=== PATIENT | male | born 1965 | race African-American/Black ===

== ENCOUNTER 2018-09-27 20:36 | Emergency (ER) | payer SELFPAY ==
[~2018-09-27] VITALS: Ht 170.2 cm; Wt 81.6 kg
[2018-09-27 20:45] VITALS: BP 135/87
[2018-09-27] MEDS ORDERED: HYDR-3164 PO (21:49)
--- NOTE | 2018-09-27 22:06 | PHYS DOC ---
Past Medical History Past Medical History: Asthma Past Surgical History: Tonsillectomy Alcohol Use: None Drug Use: None Adult General Chief Complaint Chief Complaint: ABDOMINAL PAIN HPI HPI Patient is a 52 year old [male] who presents with [right groin pain, abdominal pain, and a bulging groin mass.] Pt reports the onset of RLQ abdominal/right groin pain happened about a month ago starting as an intermittent mild discomfort. 1-2 weeks ago his discomfort started to become more painful and he noticed a bulging mass in his right groin. After discovering the mass he reports gradually worsening pain that has become constant the past few days. The pain is described as a dull "prickly" pain that can become very sharp at times. When dull he rates it a 2/10 but when sharp it becomes a 9/10. He reports the pain localizing more to his right groin during this time. He did not try to reduce the mass but notes it increases in size and is painful when he coughs, sneezes, or defecates. His last bowel movement was today and he reports flatulence is still occurring. This morning the patient got back from a [address] trip from [place]. He denies n/v, diarrhea, constipation, blood in stool or urine, headache, chest pain, shortness of breath, or fever/chills. Review of Systems Review of Systems Constitutional: Denies fever or chills Eyes: Denies change in visual acuity, redness, or eye pain HENT: Denies nasal congestion or sore throat Respiratory: Denies cough or shortness of breath Cardiovascular: No additional information not addressed in HPI GI: Denies, nausea, vomiting, bloody stools or diarrhea. Admits to RLQ abdominal pain and r inguinal/groin pain. : Denies dysuria or hematuria. Admits to intermittent testicular pain without edema or discoloration Musculoskeletal: Denies back pain or joint pain Integument: Denies rash or skin lesions Neurologic: Denies headache, focal weakness or sensory changes All other systems were reviewed and found to be within normal limits, except as documented in this note. Allergies Allergies Allergies Coded Allergies Type Severity Reaction Last Updated Verified No Known Drug Allergies 09/27/18 No Physical Exam Physical Exam Constitutional: Well developed, well nourished, no acute distress, non-toxic appearance. HENT: Normocephalic, atraumatic, bilateral external ears normal, oropharynx moist, no oral exudates, nose normal. Eyes: PERRLA, EOMI, conjunctiva normal, no discharge. Neck: Normal range of motion, no tenderness, supple, no stridor. Cardiovascular:Heart rate regular rhythm, no murmur Lungs & Thorax: Bilateral breath sounds clear to auscultation Abdomen: Bowel sounds normal, soft, no tenderness, no pulsatile masses. When patient stands and coughs, a slight fullness was palpated in the r inguinal region but no obvious herniation was noted. Patient was tender to palpation in the inguinal region. Skin: Warm, dry, no erythema, no rash. Back: No tenderness, no CVA tenderness. Extremities: No tenderness, no cyanosis, no clubbing, ROM intact, no edema. Neurologic: Alert and oriented X 3, normal motor function, normal sensory function, no focal deficits noted. Psychologic: Affect normal, judgement normal, mood normal. Current Patient Data Vital Signs Vital Signs Date Time Temp Pulse Resp B/P (MAP) Pulse Ox O2 Delivery O2 Flow Rate FiO2 09/27/18 20:45 98.0 74 16 135/87 (103) 96 Room Air 98.0 EKG EKG [] Radiology/Procedures Radiology/Procedures [] Course & Med Decision Making Course & Med Decision Making Pertinent Labs and Imaging studies reviewed. (See chart for details) [Pt is a 52 yo male presenting with RLQ/right inguinal pain. Pt reports a month of abdominal pain that is gradually worsening. It was intermittent at first but has become constant the past few days. He reported discovering a mass in the right inguinal region that he states becomes more prominent and painful when coughing, sneezing, or straining to defecate. His pain is described as dull and "prickly" that can become sharp - rated 2/10 normally but a 9/10 when sharp. On physical examination, no obvious herniation was palpated in the right inguinal region. Some fullness was palpated in the inguinal region when patient was standing and coughing. He had no abdominal tenderness but was tender to palpation in the right inguinal region. no obvious incarceration or obstuction, pt reassured norco for pain as needed, minimize heavy lifting f/u with surgery Dragon Disclaimer Gerardoon Disclaimer This electronic medical record was generated, in whole or in part, using a voice recognition dictation system. Departure Departure Impression: Primary Impression: Right inguinal hernia Disposition: HOME, SELF-CARE Condition: STABLE Referrals: YANELY RAMIREZ [employer]ELOPER (PCP) Scripts Hydrocodone/Apap 5-325 (NORCO 5-325 TABLET) 1 Each Tablet 1-2 EACH PO PRN Q6HRS PRN for PAIN, #15 as needed for pain Prov: DYLAN HOPPER MD 09/27/18 DYLAN HOPPER MD Sep 27, 2018 22:06
== END 2018-09-27 22:15 | disposition home or self-care (01) ==
LOC: ER 20:36
DX: K40.90 Unilateral inguinal hernia, without obstruction or gangrene, not specified as recurrent (principal); J45.909 Unspecified asthma, uncomplicated; Z90.89 Acquired absence of other organs
CPT/HCPCS: 99283

== ENCOUNTER → 2018-10-01 | Outpatient (CLI) | payer BC ==
[2018-09-27 20:45] VITALS: BP 135/87
[~2018-10-01] MED LIST: HYDR-3164 PO
--- NOTE | 2018-10-01 10:59 | KCIC ---
ABDOMEN COMPLETE History: Generalized abdominal pain Comparison: None. Findings: Multiple sonographic images of the abdomen are submitted. Pancreas is poorly visualized due to bowel gas. There is segmental visualization of the inferior vena cava. Abdominal aortic caliber is within normal limits. Gallbladder is present without intraluminal abnormality, wall thickening, pericholecystic fluid. No focal hepatic lesion is demonstrated, hepatic echogenicity considered within normal limits. Right lobe of the liver measured 14 cm longitudinal. Right kidney measured 10.9 x 5.1 x 4 cm, no hydronephrosis. Left kidney measured 11 x 5.1 x 5.5 cm, no hydronephrosis. No abnormality is demonstrated of the spleen. Common bile duct is within normal about 0.4 cm. Impression: 1. No significant abnormality is demonstrated. Electronically signed by: Channing Guaman MD (10/01/2018 10:56 AM) [email or web address]
--- NOTE | 2018-10-01 11:01 | KCIC ---
EXT NON VASC RIGHT History: Right groin lump Comparison: None. Findings: Multiple sonographic images directed toward the right groin region are submitted. There are 2 right groin lymph nodes, normal sonographic architecture. One measures about 1.1 cm longitudinal, the other 1.2 cm longitudinal. There is a small right groin hernia, neck estimated about 0.7 cm, no definitive peristalsis apparently visualized. Transverse dimension of hernia sac is estimated about 1.9 cm. Impression: 1. There is a small right groin hernia. Electronically signed by: Channing Guaman MD (10/01/2018 10:58 AM) [email or web address]
== END | disposition home or self-care (01) ==
LOC: KCIC US 08:29
PROVIDERS: ATTEND Physician Assistant Surgical
DX: K40.90 Unilateral inguinal hernia, without obstruction or gangrene, not specified as recurrent (principal)
CPT/HCPCS: 76700; 76881